=== PATIENT | female | born 1965 ===

== ENCOUNTER 2017-04-17 18:24 | Emergency (ER) | payer MEDICARE ==
[2017-04-17 18:24] VITALS: BMI 26.2
[2017-04-17 18:57] VITALS: RESP 16; TEMP 97.9
[2017-04-17] MEDS ORDERED: Sodium Chloride 0.9% 1,000 ML IV STA (19:29)
--- NOTE | 2017-04-17 19:39 | ED PDOC ---
HPI: Abdomen Time Seen by Provider: 04/17/17 19:21 Chief Complaint (Nursing): Abdominal Pain Chief Complaint (Provider): Left flank pain History Per: Patient History/Exam Limitations: no limitations Onset/Duration Of Symptoms: Days (1) Outside of [place] travel?: No Current Symptoms Are (Timing): Still Present Location Of Pain/Discomfort: Other (left flank) Quality Of Discomfort: "Pain" Associated Symptoms: Urinary Symptoms Additional Complaint(s): The patient is a 51yo female, past medical history of depression, presents to the ED for evaluation of left flank pain, dysuria and hematuria since last night. Patient reports she visited her chief investment officer Dr. Sanchez who did a urinalysis which showed dirty urine. Patient additionally reports yesterday morning, she had mid-sternal chest pain, non-radiating. She denies any associated shortness of breath. Patient offers no additional medical complaints. Past Medical History Reviewed: Historical Data, Nursing Documentation, Vital Signs Vital Signs: Last Vital Signs Temp 97.9 F 04/17/17 18:53 Pulse 82 04/17/17 21:35 Resp 16 04/17/17 18:53 BP 123/89 04/17/17 18:53 Pulse Ox 99 04/17/17 21:35 - Medical History PMH: Asthma, Depression, Hypercholesterolemia, Chronic Kidney Disease (RENAL SURGERY) - Surgical History Surgical History: No Surg Hx - Family History Family History: States: Unknown Family Hx - Home Medications Home Medications: Ambulatory Orders Medication Instructions Recorded Albuterol HFA [Ventolin HFA 90 1 tab PO DAILY 04/10/17 mcg/actuation (8 g)] Clonazepam 1 tab PO DAILY 04/10/17 Methocarbamol 1 tab PO Q4H 04/10/17 Omeprazole 1 tab PO DAILY 04/10/17 Trazodone HCl 1 tab PO HS 04/10/17 - Allergies Allergies/Adverse Reactions: Allergies Allergy/AdvReac Type Severity Reaction Status Date / Time No Known Allergies Allergy Verified 04/17/17 18:53 Review of Systems ROS Statement: Except As Marked, All Systems Reviewed And Found Negative Cardiovascular: Positive for: Chest Pain (mid-sternal) Respiratory: Negative for: Shortness of Breath Gastrointestinal: Positive for: Abdominal Pain (left flank pain) Genitourinary Female: Positive for: Dysuria, Hematuria Physical Exam - Reviewed Nursing Documentation Reviewed: Yes Vital Signs Reviewed: Yes - Physical Exam Appears: Positive for: Well, Non-toxic, No Acute Distress Head Exam: Positive for: ATRAUMATIC, NORMAL INSPECTION, NORMOCEPHALIC Skin: Positive for: Normal Color, Warm, DRY Eye Exam: Positive for: Normal appearance Neck: Positive for: Normal, Supple Cardiovascular/Chest: Positive for: Regular Rate, Rhythm Respiratory: Positive for: Normal Breath Sounds. Negative for: Respiratory Distress Gastrointestinal/Abdominal: Positive for: Soft, Tenderness (left upper quadrant) Back: Positive for: L CVA Tenderness Neurologic/Psych: Positive for: Alert, Oriented - Laboratory Results Result Diagrams: 04/17/17 19:41 04/17/17 19:41 - ECG ECG: Positive for: Interpreted By Me, Viewed By Me ECG Rhythm: Positive for: Sinus Rhythm. Negative for: ST/T Changes Rate: 82 O2 Sat by Pulse Oximetry: 99 (RA) Pulse Ox Interpretation: Normal Medical Decision Making Medical Decision Making: Time: 1934 Impression: Pyelonephritis vs. infected kidney stone Plan: -- Labs -- IV Fluids -- Toradol 30 mg IM -- CT AP w/ IV Contrast Reassess Time: 2134 CT AP IMPRESSION: Nonspecific findings on the left as described in this patient with prior left surgery. Findings may represent recently passed calculus. Superimposed left-sided pyelonephritis cannot be completely excluded Cystitis suspected 2300 Pt. feeling much better, states she has an appointment with her doctor in 2 days. Will encourage f/u, return precautions given. Scribe Attestation: Documented by Blanche Fritz acting as a scribe for Geovani Tinajero MD. Provider Attestation: All medical record entries made by the Scribe were at my direction and personally dictated by me. I have reviewed the chart and agree that the record accurately reflects my personal performance of the history, physical exam, medical decision making, and the department course for this patient. I have also personally directed, reviewed, and agree with the discharge instructions and disposition. Disposition - Clinical Impression Clinical Impression: Pyelonephritis - Disposition Disposition: Routine/Home Disposition Time: 23:19 Condition: STABLE
[2017-04-17 19:57] LABS: BASO % 0.4 % (0.0-2.0); EOS # 0.2 K/uL (0.0-0.7); EOS % 1.5 % (0.0-4.0); HEMOGLOBIN 12.1 g/dL (12.0-16.0); LYMPH % 16.5 % (20.0-40.0); MEAN CORPUSCULAR HEMOGLOBIN 30.8 pg (27.0-31.0); MEAN CORPUSCULAR HGB CONC 33.8 g/dL (33.0-37.0); MEAN PLATELET VOLUME 9.4 fl (7.2-11.7); MONO # 0.8 K/uL (0.0-0.8); MONO % 7.1 % (0.0-10.0); NEUT # 8.9 K/uL (1.8-7.0); NEUT % 74.5 % (50.0-75.0); NRBC % 0.1 % (0.0-0.0); RBC 3.92 Mil/uL (3.80-5.20)
[2017-04-17 20:00] LABS: SQUAMOUS EPITHIAL 2 /hpf (0-5); URINE BILIRUBIN NEGATIVE (NEGATIVE); URINE BLOOD LARGE (NEGATIVE); URINE CLARITY TURBID (Clear); URINE COLOR YELLOW (YELLOW); URINE GLUCOSE (UA) NEG (Normal); URINE LEUKOCYTE ESTERASE LARGE Leu/uL (Negative); URINE NITRATE POSITIVE (NEGATIVE); URINE PROTEIN >=500 mg/dL (NEGATIVE); URINE UROBILINOGEN 0.2-1.0 mg/dL (0.2-1.0); WBC CLUMPS OCC /hpf
[2017-04-17 20:01] LABS: URINE BACTERIA MANY (<OCC)
[2017-04-17 20:05] LABS: ALB/GLOB RATIO 1.5 (1.0-2.1); ALBUMIN 3.7 g/dL (3.5-5.0); ALT/SGPT 33 U/L (9-52); AST/SGOT 21 U/L (14-36); BLOOD UREA NITROGEN 12 mg/dl (7-17); CALCIUM 8.9 mg/dL (8.4-10.2); GFR AFRICAN-AMERICAN > 60; GFR NON-AFRICAN AMERICAN > 60
[2017-04-17] MEDS ORDERED: Iohexol 300 100 ML IJ ONE (20:12)
[2017-04-17] MEDS ORDERED: Sodium Chloride 0.9% 50 ML IV ONE (20:13)
[2017-04-17] MEDS ORDERED: Iohexol 300 50 ML ONE (21:08)
[2017-04-17] MEDS ORDERED: levoFLOXacin 750 mg in D5W 150 ML BAG IVPB STA (22:01)
[2017-04-17] MEDS ORDERED: Morphine 4 MG/ML VIAL IVP STA (22:01)
[2017-04-17] MEDS ORDERED: levoFLOXacin 750 mg in D5W 750 MG/150 ML BAG IVPB ONE (22:13)
[2017-04-17 23:51] VITALS: BP 125/80; PULSE 75; O2SAT 100
--- NOTE | 2017-04-18 10:07 | CARD ---
APPROVED REPORT EKG Measurement Heart [id number] <Conclusion> Normal sinus rhythm Normal ECG
--- NOTE | 2017-04-18 10:17 | CT ---
PROCEDURE: CT Abdomen and Pelvis with contrast HISTORY: L flank pain, chills, UTI, r/o pyelo v stone COMPARISON: And pelvis CT examination 07/07/2016. TECHNIQUE: Contrast dose: Omnipaque 300, 95 cc Radiation dose: Total exam DLP = 627 mGy-cm. This CT exam was performed using one or more of the following dose reduction techniques: Automated exposure control, adjustment of the mA and/or kV according to patient size, and/or use of iterative reconstruction technique. FINDINGS: LOWER THORAX: Limited bilateral basilar dependent atelectasis. LIVER: Mild diffuse fatty infiltration liver is identified. No intrahepatic biliary dilatation is encountered. GALLBLADDER AND BILE DUCTS: Gallbladder is contracted. CBD caliber appears normal. PANCREAS: Unremarkable. No gross lesion or ductal dilatation. SPLEEN: Unremarkable. ADRENALS: Unremarkable. No mass. KIDNEYS AND URETERS: Right kidney appears unremarkable once again. However, in the interval, the left renal pelvis is now markedly dilated increase of [id number] size previously shown. There is there is also mild dilatation of the calyceal system diffusely indicating hydronephrosis. Mural thickening along the entire course of the ureter is suspected. No radiodense urolithiasis is identified. Consider possible expulsion of obstruction CT distal left ureteral calculus although ureteral caliber is normal throughout. It is possible there are habits there is been interval worsening of a proximal left ureteral stricture. Urological consultation is advised. Cervical seen of the left sharmaine abdomen the front uncertain origin with no clips appearing to approximate the course of the left ureter. VASCULATURE: Unremarkable. No aortic aneurysm. BOWEL: Unremarkable. No obstruction. No gross mural thickening. APPENDIX: Normal appendix. PERITONEUM: Unremarkable. No free fluid. No free air. LYMPH NODES: Unremarkable. No enlarged lymph nodes. BLADDER: There is some thickening urinary bladder wall which also appears somewhat hyperemic. Consider possible cystitis. REPRODUCTIVE: Unremarkable. BONES: No acute fracture. OTHER FINDINGS: None. IMPRESSION: 1. Mild left hydronephrosis now identified with prominent left renal pelvis now a multiple of its previous size. The left ureter is not dilated but appears thick-walled as well as the urinary bladder. Consider possible expulsion of stroke obstructing distal left renal calculus although none is currently appreciated in the urinary bladder. Consider possible worsening of a proximal left ureteral stricture or even the left UPJ stricture given prior prominence the left renal pelvis. Urological consultation is advised. 2. Consider possible cystitis of indeterminate etiology.
--- NOTE | 2017-04-18 15:15 | RAD ---
PROCEDURE: CHEST RADIOGRAPH, 1 VIEW HISTORY: chest pain COMPARISON: 12/22/2016 radiograph. FINDINGS: LUNGS: Clear. PLEURA: No pneumothorax or pleural fluid seen. CARDIOVASCULAR: Normal. OSSEOUS STRUCTURES: No significant abnormalities. VISUALIZED UPPER ABDOMEN: Normal. OTHER FINDINGS: None. IMPRESSION: No acute cardiopulmonary disease or significant interval change.
== END 2017-04-17 23:52 | disposition home or self-care (01) ==
LOC: H.ER 18:24
DX: N10 Acute pyelonephritis (principal); E78.00 Pure hypercholesterolemia, unspecified; F32.9 Major depressive disorder, single episode, unspecified; J45.909 Unspecified asthma, uncomplicated; N18.9 Chronic kidney disease, unspecified
CPT/HCPCS: 71010; 74177; 80053; 81003; 81025; 84484; 85025; 87040; 87086; 87181; 93005; 96365; 96375; 99283; J1885; J7040; Q9967

== ENCOUNTER 2017-08-03 10:02 | Emergency (ER) | payer MEDICARE, OTHER ==
[2017-08-03 10:02] VITALS: BMI 26.2
[2017-08-03 10:33] VITALS: BP 121/78; PULSE 88; RESP 18; TEMP 97; O2SAT 99
--- NOTE | 2017-08-03 10:38 | ED PDOC ---
HPI: CCC, URI, Sore Throat Time Seen by Provider: 08/03/17 10:31 Chief Complaint (Nursing): Cough, Cold, Congestion History Per: Patient Onset/Duration Of Symptoms: Days (10) Current Symptoms Are (Timing): Still Present Associated Symptoms: Cough, Sputum. denies: Fever Severity: Mild Additional Complaint(s): Cough productive brown sputum x 10 days assoc with wheezing. Temp improvement with inhaler. Denies fever. Past Medical History Vital Signs: Last Vital Signs Temp 97 F L 08/03/17 10:31 Pulse 88 08/03/17 10:31 Resp 18 08/03/17 10:31 BP 121/78 08/03/17 10:31 Pulse Ox 99 08/03/17 10:40 - Medical History PMH: Asthma, Depression, Hypercholesterolemia, Chronic Kidney Disease (RENAL SURGERY) - Surgical History Surgical History: - Family History Family History: States: Unknown Family Hx - Home Medications Home Medications: Ambulatory Orders Medication Instructions Recorded Albuterol HFA [Ventolin HFA 90 1 tab PO DAILY 04/10/17 mcg/actuation (8 g)] Clonazepam 1 tab PO DAILY 04/10/17 Methocarbamol 1 tab PO Q4H 04/10/17 Omeprazole 1 tab PO DAILY 04/10/17 Trazodone HCl 1 tab PO HS 04/10/17 Ibuprofen [Motrin Tab] 600 mg PO Q6 #30 tab 04/17/17 levoFLOXacin [Levaquin] 750 mg PO DAILY 10 Days tab 04/17/17 Albuterol 0.083% [Albuterol 3 ml IH Q8 #1 neb 08/03/17 Sulfate 3 Ml] Albuterol HFA [Ventolin HFA 90 2 puff IH Q4H #1 puff 08/03/17 mcg/actuation (8 g)] Azithromycin [Zithromax] 250 mg PO DAILY #6 tab 08/03/17 Non-Formulary 1 ea .ROUTE Q6 #1 ea 08/03/17 predniSONE [predniSONE Tab] 10 mg PO TID #15 tab 08/03/17 - Allergies Allergies/Adverse Reactions: Allergies Allergy/AdvReac Type Severity Reaction Status Date / Time No Known Allergies Allergy Verified 08/03/17 10:31 Review of Systems ROS Statement: Except As Marked, All Systems Reviewed And Found Negative Constitutional: Negative for: Fever Cardiovascular: Negative for: Chest Pain Respiratory: Positive for: Cough, Shortness of Breath, Wheezing Physical Exam - Reviewed Nursing Documentation Reviewed: Yes Vital Signs Reviewed: Yes - Physical Exam Appears: Positive for: Non-toxic, No Acute Distress Head Exam: Positive for: ATRAUMATIC, NORMAL INSPECTION, NORMOCEPHALIC Skin: Positive for: Normal Color, Warm, DRY Eye Exam: Positive for: EOMI, Normal appearance, PERRL ENT: Positive for: Normal ENT Inspection Neck: Positive for: Normal, Painless ROM Cardiovascular/Chest: Positive for: Regular Rate, Rhythm Respiratory: Positive for: CNT, Normal Breath Sounds Gastrointestinal/Abdominal: Positive for: Normal Exam, Bowel Sounds, Soft Back: Positive for: Normal Inspection Extremity: Positive for: Normal ROM Neurologic/Psych: Positive for: Alert, Oriented - ECG O2 Sat by Pulse Oximetry: 99 Disposition - Clinical Impression Clinical Impression: Bronchitis, Asthma - Patient ED Disposition Is Patient to be Admitted: No Counseled Patient/Family Regarding: Studies Performed, Diagnosis, Need For Followup, Rx Given - Disposition Referrals: [facility] [Outside] Disposition: Routine/Home Disposition Time: 11:03 Condition: FAIR Prescriptions: Albuterol 0.083% [Albuterol Sulfate 3 Ml] 3 ml IH Q8 #1 neb Albuterol HFA [Ventolin HFA 90 mcg/actuation (8 g)] 2 puff IH Q4H #1 puff Azithromycin [Zithromax] 250 mg PO DAILY #6 tab Non-Formulary 1 ea .ROUTE Q6 #1 ea predniSONE [predniSONE Tab] 10 mg PO TID #15 tab Instructions: Asthma (ED), Acute Bronchitis (ED) Forms: [facility] [facility] ([facility]incent[facility])
--- NOTE | 2017-08-03 11:09 | RAD ---
HISTORY: cough COMPARISON: Right rib radiographs performed 05/03/17, chest x-ray performed 04/17/17 TECHNIQUE: Chest PA and lateral FINDINGS: LUNGS: No focal consolidation. Please note that chest x-ray has limited sensitivity for the detection of pulmonary masses. PLEURA: No significant pleural effusion identified. No definite pneumothorax . CARDIOVASCULAR: Heart size appears within normal limits. OSSEOUS STRUCTURES: No acute osseous abnormality identified. VISUALIZED UPPER ABDOMEN: Unremarkable. OTHER FINDINGS: None. IMPRESSION: No focal consolidation, significant pleural effusion, or definite pneumothorax identified.
== END 2017-08-03 11:24 | disposition home or self-care (01) ==
LOC: H.ER 10:02
DX: J45.909 Unspecified asthma, uncomplicated (principal); E78.00 Pure hypercholesterolemia, unspecified; F32.9 Major depressive disorder, single episode, unspecified; N18.9 Chronic kidney disease, unspecified; J40 Bronchitis, not specified as acute or chronic

== ENCOUNTER 2017-12-12 23:46 | Inpatient (IN) | payer MEDICARE, SELFPAY ==
[2017-12-12 23:46] VITALS: BMI 26.2
[2017-12-13] MEDS ORDERED: Sodium Chloride 0.9% 1,000 ML IV STA (01:00)
[2017-12-13] MEDS ORDERED: cefTRIAXone 2 GM in Dextrose 5% In Water 100 ML IVPB STA (01:08)
[2017-12-13] MEDS ORDERED: cefTRIAXone (Rocephin) 1 gm Inj ONE (01:41)
--- NOTE | 2017-12-13 01:47 | ED PDOC ---
HPI: Abdomen Time Seen by Provider: 12/13/17 00:51 Chief Complaint (Nursing): Back Pain Chief Complaint (Provider): Flank Pain History Per: Patient History/Exam Limitations: no limitations Onset/Duration Of Symptoms: Hrs (x24 hours), Worse Since (x2 hours) Severity: Severe Location Of Pain/Discomfort: Other (Left flank pain) Associated Symptoms: Urinary Symptoms (dysuria) Additional Complaint(s): 52 year old female presents to ED with complaints of left flank pain x24 hours and has a past medical history of depression and recurrent kidney/urinary infections. Patient notes that pain has become severe in the last 2 years. (+) dysuria. (-) hematuria. PCP: Miguel Angel Bautista Past Medical History Reviewed: Historical Data, Nursing Documentation, Vital Signs Vital Signs: Last Vital Signs Temp 98.7 F 12/13/17 07:43 Pulse 93 H 12/13/17 09:35 Resp 18 12/13/17 09:35 BP 110/73 12/13/17 07:43 Pulse Ox 95 12/13/17 09:35 - Medical History PMH: Asthma, Depression, Hypercholesterolemia, Chronic Kidney Disease (RENAL SURGERY) - Surgical History Surgical History: Denies: No Surg Hx Other surgeries: left kidney surgery - Family History Family History: States: Unknown Family Hx - Social History Current smoker - smoking cessation education provided: No Ex-Smoker (has not smoked in the last 12 months): No Alcohol: None Drugs: Denies - Home Medications Home Medications: Ambulatory Orders Medication Instructions Recorded Albuterol 0.083% [Albuterol 0.083% 2.5 mg INH TID 12/13/17 Inhal Cyndie (2.5 mg/3 ml) UD] Albuterol HFA [Ventolin HFA 90 2 puff INH TID 12/13/17 mcg/actuation (8 g)] Ciprofloxacin [Cipro] 500 mg PO BID 14 Days #28 tab 12/13/17 Citalopram [celEXA] 20 mg PO DAILY 12/13/17 Fluticasone Propionate [Flovent 0.22 mg IH BID 12/13/17 Hfa] Gabapentin [Neurontin] 300 mg PO TID 12/13/17 Lubiprostone [Amitiza] 8 mcg PO DAILY 12/13/17 Meclizine [Antivert] 12.5 mg PO DAILY 12/13/17 Olanzapine [Zyprexa] 5 mg PO DAILY 12/13/17 Olanzapine [Zyprexa] 5 mg PO DAILY 12/13/17 Omeprazole 40 mg PO DAILY 12/13/17 Pantoprazole [Protonix EC Tab] 40 mg PO DAILY 12/13/17 Risperidone [Risperdal] 1 mg PO BID 12/13/17 - Allergies Allergies/Adverse Reactions: Allergies Allergy/AdvReac Type Severity Reaction Status Date / Time No Known Allergies Allergy Verified 08/03/17 10:31 Review of Systems ROS Statement: Except As Marked, All Systems Reviewed And Found Negative Genitourinary Female: Positive for: Dysuria. Negative for: Hematuria Musculoskeletal: Positive for: Other (Left flank pain) Physical Exam - Reviewed Nursing Documentation Reviewed: Yes Vital Signs Reviewed: Yes - Physical Exam Appears: Positive for: Non-toxic, Uncomfortable Skin: Positive for: Normal Color, Warm, Dry Cardiovascular/Chest: Positive for: Regular Rate, Rhythm, Tachycardia Respiratory: Positive for: Normal Breath Sounds. Negative for: Respiratory Distress Gastrointestinal/Abdominal: Positive for: Normal Exam, Soft. Negative for: Tenderness Back: Positive for: L CVA Tenderness (severe). Negative for: Normal Inspection , R CVA Tenderness Neurologic/Psych: Positive for: Alert, Oriented. Negative for: Motor/Sensory Deficits - Laboratory Results Result Diagrams: 12/13/17 01:45 12/13/17 01:45 - ECG O2 Sat by Pulse Oximetry: 100 (RA) Pulse Ox Interpretation: Normal Medical Decision Making Medical Decision Makin Initial impression: left renal colic in setting of frequent kidney infections Initial plan: * Labs * Lact acid * UPreg * UDip * NS IV * Dextrose IV * Toradol 15mg IVP * BCx * UCx * Re-eval 0408 Patient will be admitted for further treatment of pyelonephritis under the admitting resident Dr. Keene covering for Dr. Bautista (INPATIENT MED/SURG). 0430 CT FINDINGS: LIMITATIONS: Mild streak/motion artifact. LOWER THORAX: No infiltrate seen in the lung bases. ABDOMEN: LIVER: Tiny (less than 5 mm) fluid density liver lesion incidentally noted, which does not have suspicious features by CT. Consistent with the [employer]'s Incidental Findings Committee Report (J Am Dashawn Radiol 2010): Unless the patient's specific circumstances suggest otherwise, any liver lesion 0.5 cm or less not otherwise characterized in this report as possessing suspicious or indeterminate imaging features is highly likely to be benign and does not require followup imaging or biopsy. GALLBLADDER AND BILE DUCTS: Mild biliary ductal dilatation, with the common bile duct measuring 9 mm in diameter, similar to the prior CT. No evidence of radiopaque bile duct stones. No CT evidence of acute cholecystitis. PANCREAS: No CT evidence of acute pancreatitis. SPLEEN: No acute abnormality of the spleen identified. ADRENALS: No acute abnormality of the adrenal glands identified. KIDNEYS AND URETERS: Severe left hydronephrosis, mild left hydroureter, and mild left perinephric and periureteric stranding. Findings appear stable compared to the prior CT. No obstructing stones visualized. Multiple surgical clips in the left retroperitoneum, abutting the left UPJ and the left mid ureter. STOMACH AND BOWEL: No acute abnormality of the stomach, small bowel or colon identified. No evidence of bowel obstruction. APPENDIX: Appendix is seen, and is within normal limits in appearance. PELVIS: BLADDER: No acute abnormality of the bladder identified. REPRODUCTIVE:No acute abnormality of the reproductive organs is seen. No acute abnormality of the uterus identified. No evidence of large adnexal masses. ABDOMEN and PELVIS: INTRAPERITONEAL SPACE: No evidence of free intraperitoneal air or fluid. BONES/JOINTS: No acute fractures or other acute bony abnormality noted. SOFT TISSUES: No acute abnormality of the visualized soft tissues is seen. VASCULATURE: No evidence of abdominal aortic aneurysm. No evidence of periaortic hemorrhage. LYMPH NODES: No evidence of diffuse lymphadenopathy. IMPRESSION: - Stable findings compared to a 04/17/2017 CT. - Severe left hydronephrosis, mild left hydroureter, and left perinephric/ periureteric stranding, with no obstructing stone seen. Findings appear unchanged, and could represent chronic obstructive uropathy. A superimposed left-sided urinary tract infection is not excluded, however. - Mild biliary ductal dilatation, cause not identified. Recommend correlation with LFTs for laboratory evidence of biliary obstruction, and followup right upper quadrant ultrasound as indicated. - See above for remaining findings. Scribe Attestation: Documented by Rosario Ruiz acting as a scribe Nahid Willoughby MD. MD Oliver Attestation: All medical record entries made by the Scribe were at my direction and personally dictated by me. I have reviewed the chart and agree that the record accurately reflects my personal performance of the history, physical exam, medical decision making, and the department course for this patient. I have also personally directed, reviewed, and agree with the discharge instructions and disposition. Disposition - Clinical Impression Clinical Impression: Acute pyelonephritis - Patient ED Disposition Is Patient to be Admitted: Yes - Disposition Disposition Time: 04:08 Condition: FAIR - Pt Status Changed To: Hospital Disposition Of: Inpatient (INPATIENT MED/SURG) - Admit Certification Admit to Inpatient:: After my assessment, the patient will require hospitalization for at least two midnights. This is because of the severity of symptoms shown, intensity of services needed, and/or the medical risk in this patient being treated as an outpatient.
[2017-12-13 02:15] LABS: BASO # 0.1 K/uL (0.0-0.2); BASO % 0.5 % (0.0-2.0); EOS # 0.2 K/uL (0.0-0.7); EOS % 1.2 % (0.0-4.0); LYMPH # 3.5 K/uL (1.0-4.3); LYMPH % 25.4 % (20.0-40.0); MEAN CELL VOLUME 92.2 fl (81.0-99.0); MEAN CORPUSCULAR HEMOGLOBIN 30.8 pg (27.0-31.0); MEAN CORPUSCULAR HGB CONC 33.4 g/dL (33.0-37.0); MEAN PLATELET VOLUME 9.6 fl (7.2-11.7); MONO # 0.8 K/uL (0.0-0.8); MONO % 5.6 % (0.0-10.0); NEUT # 9.2 K/uL (1.8-7.0); NEUT % 67.3 % (50.0-75.0); RBC 4.56 Mil/uL (3.80-5.20); WHITE BLOOD COUNT 13.7 K/uL (4.8-10.8)
[2017-12-13 02:22] LABS: BLOOD UREA NITROGEN 18 mg/dl (7-17); CALCIUM 9.5 mg/dL (8.4-10.2); GFR AFRICAN-AMERICAN > 60; GFR NON-AFRICAN AMERICAN > 60
[2017-12-13 04:04] LABS: SQUAMOUS EPITHIAL 3 /hpf (0-5); URINE BACTERIA FEW (<OCC); URINE BILIRUBIN NEGATIVE (NEGATIVE); URINE BLOOD MODERATE (NEGATIVE); URINE CLARITY TURBID (Clear); URINE COLOR YELLOW (YELLOW); URINE GLUCOSE (UA) NEG (Normal); URINE LEUKOCYTE ESTERASE LARGE Leu/uL (Negative); URINE PROTEIN 100 mg/dL (NEGATIVE); URINE UROBILINOGEN 0.2-1.0 mg/dL (0.2-1.0)
--- NOTE | 2017-12-13 04:33 | CT ---
EXAM: CT Abdomen and Pelvis Without Intravenous Contrast EXAM DATE/TIME: 12/13/2017 3:03 AM CLINICAL HISTORY: 52 years old, female; Pain; Abdominal pain; Flank; Left; Prior surgery; Surgery date: 6+ months; Surgery type: Left kidney surgery. ; Additional info: Renal colic TECHNIQUE: Axial computed tomography images of the abdomen and pelvis without intravenous contrast. All CT scans at this facility use one or more dose reduction techniques, viz.: automated exposure control; ma/kV adjustment per patient size (including targeted exams where dose is matched to indication; i.e. head); or iterative reconstruction technique. Coronal and sagittal reformatted images were created and reviewed. COMPARISON: Prior CT abdomen and pelvis of 2017-04-17 21:09 FINDINGS: LIMITATIONS: Mild streak/motion artifact. LOWER THORAX: No infiltrate seen in the lung bases. ABDOMEN: LIVER: Tiny (less than 5 mm) fluid density liver lesion incidentally noted, which does not have suspicious features by CT. Consistent with the [employer]?s Incidental Findings Committee Report (J Am Dashawn Radiol 2010): Unless the patient?s specific circumstances suggest otherwise, any liver lesion 0.5 cm or less not otherwise characterized in this report as possessing suspicious or indeterminate imaging features is highly likely to be benign and does not require follow-up imaging or biopsy. GALLBLADDER AND BILE DUCTS: Mild biliary ductal dilatation, with the common bile duct measuring 9 mm in diameter, similar to the prior CT. No evidence of radiopaque bile duct stones. No CT evidence of acute cholecystitis. PANCREAS: No CT evidence of acute pancreatitis. SPLEEN: No acute abnormality of the spleen identified. ADRENALS: No acute abnormality of the adrenal glands identified. KIDNEYS AND URETERS: Severe left hydronephrosis, mild left hydroureter, and mild left perinephric and periureteric stranding. Findings appear stable compared to the prior CT. No obstructing stones visualized. Multiple surgical clips in the left retroperitoneum, abutting the left UPJ and the left mid ureter. STOMACH AND BOWEL: No acute abnormality of the stomach, small bowel or colon identified. No evidence of bowel obstruction. APPENDIX: Appendix is seen, and is within normal limits in appearance. PELVIS: BLADDER: No acute abnormality of the bladder identified. REPRODUCTIVE:No acute abnormality of the reproductive organs is seen. No acute abnormality of the uterus identified. No evidence of large adnexal masses. ABDOMEN and PELVIS: INTRAPERITONEAL SPACE: No evidence of free intraperitoneal air or fluid. BONES/JOINTS: No acute fractures or other acute bony abnormality noted. SOFT TISSUES: No acute abnormality of the visualized soft tissues is seen. VASCULATURE: No evidence of abdominal aortic aneurysm. No evidence of periaortic hemorrhage. LYMPH NODES: No evidence of diffuse lymphadenopathy. IMPRESSION: - Stable findings compared to a 04/17/2017 CT. - Severe left hydronephrosis, mild left hydroureter, and left perinephric/periureteric stranding, with no obstructing stone seen. Findings appear unchanged, and could represent chronic obstructive uropathy. A superimposed left-sided urinary tract infection is not excluded, however. - Mild biliary ductal dilatation, cause not identified. Recommend correlation with LFTs for laboratory evidence of biliary obstruction, and followup right upper quadrant ultrasound as indicated. - See above for remaining findings.
--- NOTE | 2017-12-13 05:47 | CP.PCM.HP ---
History of Present Illness - History of Present Illness History of Present Illness: 52 year old female presented to ED with complaint of left sided flank pain for 2 days, acutely worsened prior to admission. Pain improved since arriving to ED , no fevers, chills, nausea or vomiting, no abdominal pain or diarrhea. She has dysuria, denies hematuria, malodor. She endorses a history of recurrent UTIs, for which she typically takes PO antibiotics for 7 days with resolution of symptoms. She has had 7 or 8 UTIs in the last 4 years. 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 She had surgery to 'connect her left kidney to the right kidney' due to decreased renal function, now both work well. She has a urologist, Dr. Cox that she last saw about 6 months ago. Also notes retrosternal burning. She takes omeprazole ocassionally. She had EGD about 6-7 months ago performed by Dr. Wang. She was treated with 2 week course of antibiotics, but has not followed up after treatment. PMD: Dr. Miguel Angel Bautista Urologist: Dr. Pantera Cox Sawmill Worker: Dr. Wang PMH: Recurrent UTI, Depression, Asthma, Vertigo Medications: as per med rec Allergies: NKDA Social: +Tobacco use: 10 cigs/day, no etoh or illicit drug use Surgical hx: left kidney surgery, x 1, left ankle surgery Family Hx: Mother: +gastric cancer, +thyroid cancer, Father: -had alzheimers. Sister: , had HIV Present on Admission - Present on Admission Any Indicators Present on Admission: No Review of Systems - Constitutional Constitutional: absent: Chills, Fever, Headache, Night Sweats - EENT Eyes: absent: Change in Vision Nose/Mouth/Throat: absent: Nasal Congestion, Dysphagia, Sore Throat - Cardiovascular Cardiovascular: absent: Chest Pain, Dyspnea, Dyspnea on Exertion, Edema, Pedal Edema, Syncope - Respiratory Respiratory: absent: Cough, Dyspnea, Dyspnea on Exertion - Gastrointestinal Gastrointestinal: Heartburn. absent: Abdominal Pain, Nausea, Vomiting - Genitourinary Genitourinary: Dysuria, Flank Pain (Left), Freq UTI, Hx /Renal Surgery. absent: Hematuria, Pyuria Past Patient History - Infectious Disease Hx of Infectious Diseases: None - Past Medical History & Family History Past Medical History?: Yes - Past Social History Smoking Status: Light Smoker < 10 Cigarettes Daily Chewing Tobacco Use: No Alcohol: None Drugs: Denies - CARDIAC Hx Hypercholesterolemia: Yes - PULMONARY Hx Asthma: Yes - NEUROLOGICAL Hx Neurological Disorder: No - HEENT Hx HEENT Problems: No - RENAL Hx Chronic Kidney Disease: Yes (RENAL SURGERY) - ENDOCRINE/METABOLIC Hx Endocrine Disorders: No - HEMATOLOGICAL/ONCOLOGICAL Hx Blood Disorders: No - INTEGUMENTARY Hx Dermatological Problems: No - MUSCULOSKELETAL/RHEUMATOLOGICAL Hx Musculoskeletal Disorders: No - GASTROINTESTINAL Hx Gastrointestinal Disorders: No - GENITOURINARY/GYNECOLOGICAL Hx Genitourinary Disorders: No - PSYCHIATRIC Hx Depression: Yes - SURGICAL HISTORY Other/Comment: renal surgery - ANESTHESIA Hx Anesthesia: Yes Hx Anesthesia Reactions: No Hx Malignant Hyperthermia: No Meds Allergies/Adverse Reactions: Allergies Allergy/AdvReac Type Severity Reaction Status Date / Time No Known Allergies Allergy Verified 08/03/17 10:31 Physical Exam - Constitutional Appears: Well, Non-toxic, No Acute Distress - Head Exam Head Exam: ATRAUMATIC, NORMAL INSPECTION, NORMOCEPHALIC - Eye Exam Eye Exam: EOMI, Normal appearance, PERRL - ENT Exam ENT Exam: Mucous Membranes Moist - Respiratory Exam Respiratory Exam: Clear to Auscultation Bilateral, NORMAL BREATHING PATTERN - Cardiovascular Exam Cardiovascular Exam: REGULAR RHYTHM, +S1, +S2 - GI/Abdominal Exam GI & Abdominal Exam: Normal Bowel Sounds, Soft. absent: Distended, Guarding, Rebound, Tenderness - Rectal Exam Rectal Exam: Deferred - Back Exam Back exam: CVA tenderness (L), NORMAL INSPECTION. absent: paraspinal tenderness , rash noted - Neurological Exam Neurological exam: Alert, CN II-XII Intact, Oriented x3 - Psychiatric Exam Psychiatric exam: Normal Affect, Normal Mood - Skin Skin Exam: Dry, Intact, Normal Color, Warm Results - Vital Signs Recent Vital Signs: Last Vital Signs Temp 98.6 F 12/13/17 05:24 Pulse 96 H 12/13/17 05:24 Resp 16 12/13/17 05:24 BP 107/58 L 12/13/17 05:24 Pulse Ox 96 12/13/17 05:24 - Labs Result Diagrams: 12/13/17 01:45 12/13/17 01:45 Labs: Laboratory Results - last 24 hr 12/13/17 12/13/17 12/13/17 01:45 01:45 01:45 WBC 13.7 H D RBC 4.56 Hgb 14.0 Hct 42.0 MCV 92.2 MCH 30.8 MCHC 33.4 RDW 13.0 Plt Count 333 MPV 9.6 Neut % (Auto) 67.3 Lymph % (Auto) 25.4 [place] % (Auto) 5.6 Eos % (Auto) 1.2 Baso % (Auto) 0.5 Neut # (Auto) 9.2 H Lymph # (Auto) 3.5 [place] # (Auto) 0.8 Eos # (Auto) 0.2 Baso # (Auto) 0.1 Sodium 145 Potassium 3.6 Chloride 102 Carbon Dioxide 28 Anion Gap 19 BUN 18 H Creatinine 0.7 Est GFR ( Amer) > 60 Est GFR (Non-Af Amer) > 60 Random Glucose 87 Lactic Acid 1.1 Calcium 9.5 Urine Color Urine Clarity Urine pH Ur Specific [place] Urine Protein Urine Glucose (UA) Urine Ketones Urine Blood Urine Nitrate Urine Bilirubin Urine Urobilinogen Ur Leukocyte Esterase Urine RBC (Auto) Urine Microscopic WBC Ur Squamous Epith Cells Urine Bacteria 12/13/17 03:45 WBC RBC Hgb Hct MCV MCH MCHC RDW Plt Count MPV Neut % (Auto) Lymph % (Auto) [place] % (Auto) Eos % (Auto) Baso % (Auto) Neut # (Auto) Lymph # (Auto) [place] # (Auto) Eos # (Auto) Baso # (Auto) Sodium Potassium Chloride Carbon Dioxide Anion Gap BUN Creatinine Est GFR ( Amer) Est GFR (Non-Af Amer) Random Glucose Lactic Acid Calcium Urine Color Yellow Urine Clarity Turbid Urine pH 6.0 Ur Specific [place] 1.020 Urine Protein 100 Urine Glucose (UA) Neg Urine Ketones Negative Urine Blood Moderate Urine Nitrate Positive H Urine Bilirubin Negative Urine Urobilinogen 0.2-1.0 Ur Leukocyte Esterase Large Urine RBC (Auto) 127 H Urine Microscopic WBC 2281 H Ur Squamous Epith Cells 3 Urine Bacteria Few H - Imaging and Cardiology CT scan - abdomen Status: Image reviewed by me, Report reviewed by me Additional comment: FINDINGS: LIMITATIONS: Mild streak/motion artifact. LOWER THORAX: No infiltrate seen in the lung bases. ABDOMEN: LIVER: Tiny (less than 5 mm) fluid density liver lesion incidentally noted, which does not have suspicious features by CT. Consistent with the [employer]'s Incidental Findings Committee Report (J Am Dashawn Radiol 2010): Unless the patient's specific circumstances suggest otherwise, any liver lesion 0.5 cm or less not otherwise characterized in this report as possessing suspicious or indeterminate imaging features is highly likely to be benign and does not require followup imaging or biopsy. GALLBLADDER AND BILE DUCTS: Mild biliary ductal dilatation, with the common bile duct measuring 9 mm in diameter, similar to the prior CT. No evidence of radiopaque bile duct stones. No CT evidence of acute cholecystitis. PANCREAS: No CT evidence of acute pancreatitis. SPLEEN: No acute abnormality of the spleen identified. ADRENALS: No acute abnormality of the adrenal glands identified. KIDNEYS AND URETERS: Severe left hydronephrosis, mild left hydroureter, and mild left perinephric and periureteric stranding. Findings appear stable compared to the prior CT. No obstructing stones visualized. Multiple surgical clips in the left retroperitoneum, abutting the left UPJ and the left mid ureter. STOMACH AND BOWEL: No acute abnormality of the stomach, small bowel or colon identified. No evidence of bowel obstruction. APPENDIX: Appendix is seen, and is within normal limits in appearance. PELVIS: BLADDER: No acute abnormality of the bladder identified. REPRODUCTIVE:No acute abnormality of the reproductive organs is seen. No acute abnormality of the uterus identified. No evidence of large adnexal masses. ABDOMEN and PELVIS: INTRAPERITONEAL SPACE: No evidence of free intraperitoneal air or fluid. BONES/JOINTS: No acute fractures or other acute bony abnormality noted. SOFT TISSUES: No acute abnormality of the visualized soft tissues is seen. VASCULATURE: No evidence of abdominal aortic aneurysm. No evidence of periaortic hemorrhage. LYMPH NODES: No evidence of diffuse lymphadenopathy IMPRESSION: - Stable findings compared to a 04/17/2017 CT. - Severe left hydronephrosis, mild left hydroureter, and left perinephric/ periureteric stranding, with no obstructing stone seen. Findings appear unchanged, and could represent chronic obstructive uropathy. A superimposed left-sided urinary tract infection is not excluded, however. - Mild biliary ductal dilatation, cause not identified. Recommend correlation with LFTs for laboratory evidence of biliary obstruction, and followup right upper quadrant ultrasound as indicated. Assessment & Plan (1) Acute pyelonephritis Assessment and Plan: 52 year old female with significant PMH of recurrent UTIs and renal surgery, admitted for acute pyleonephritis. She is afebrile and hemodynamically stable with +L CVA tenderness, no nausea or vomiting. Mild leukocytosis of 13. Previous urine cultures reviewed, +e-coli, resistant to ampicillin. UA positive for : + nitrate, large leukocytes, WBC: > 2000 Continue rocephin toradol for pain control Status: Acute (2) DVT prophylaxis Assessment and Plan: scds for now, ambulation encouraged. Status: Acute
[2017-12-13 07:49] VITALS: BP 110/73; PULSE 93; TEMP 98.7
[2017-12-13 10:06] VITALS: RESP 18
[2017-12-13] MEDS ORDERED: LUBIPROSTONE 8 MCG PO SCH (14:00)
--- NOTE | 2017-12-13 15:11 | CP.PCM.DIS ---
Provider - Provider Date of Admission: 12/13/17 04:08 Attending physician: Miguel Angel Bautista MD Primary care physician: Miguel Angel Bautista MD Time Spent in preparation of Discharge (in minutes): 55 Diagnosis - Discharge Diagnosis (1) Acute pyelonephritis Status: Acute Hospital Course - Lab Results Lab Results: Most Recent Lab Values WBC 13.7 K/uL (4.8-10.8) H D 12/13/17 01:45 RBC 4.56 Mil/uL (3.80-5.20) 12/13/17 01:45 Hgb 14.0 g/dL (12.0-16.0) 12/13/17 01:45 Hct 42.0 % (34.0-47.0) 12/13/17 01:45 MCV 92.2 fl (81.0-99.0) 12/13/17 01:45 MCH 30.8 pg (27.0-31.0) 12/13/17 01:45 MCHC 33.4 g/dL (33.0-37.0) 12/13/17 01:45 RDW 13.0 % (11.5-14.5) 12/13/17 01:45 Plt Count 333 K/uL (130-400) 12/13/17 01:45 MPV 9.6 fl (7.2-11.7) 12/13/17 01:45 Neut % (Auto) 67.3 % (50.0-75.0) 12/13/17 01:45 Lymph % (Auto) 25.4 % (20.0-40.0) 12/13/17 01:45 [place] % (Auto) 5.6 % (0.0-10.0) 12/13/17 01:45 Eos % (Auto) 1.2 % (0.0-4.0) 12/13/17 01:45 Baso % (Auto) 0.5 % (0.0-2.0) 12/13/17 01:45 Neut # (Auto) 9.2 K/uL (1.8-7.0) H 12/13/17 01:45 Lymph # (Auto) 3.5 K/uL (1.0-4.3) 12/13/17 01:45 [place] # (Auto) 0.8 K/uL (0.0-0.8) 12/13/17 01:45 Eos # (Auto) 0.2 K/uL (0.0-0.7) 12/13/17 01:45 Baso # (Auto) 0.1 K/uL (0.0-0.2) 12/13/17 01:45 Sodium 145 mmol/l (132-148) 12/13/17 01:45 Potassium 3.6 MMOL/L (3.6-5.0) 12/13/17 01:45 Chloride 102 mmol/L (98-107) 12/13/17 01:45 Carbon Dioxide 28 mmol/L (22-30) 12/13/17 01:45 Anion Gap 19 (10-20) 12/13/17 01:45 BUN 18 mg/dl (7-17) H 12/13/17 01:45 Creatinine 0.7 mg/dl (0.7-1.2) 12/13/17 01:45 Est GFR ( Amer) > 60 12/13/17 01:45 Est GFR (Non-Af Amer) > 60 12/13/17 01:45 Random Glucose 87 mg/dL (65-105) 12/13/17 01:45 Lactic Acid 1.1 MMOL/L (0.7-2.1) 12/13/17 01:45 Calcium 9.5 mg/dL (8.4-10.2) 12/13/17 01:45 Urine Color Yellow (YELLOW) 12/13/17 03:45 Urine Clarity Turbid (Clear) 12/13/17 03:45 Urine pH 6.0 (5.0-8.0) 12/13/17 03:45 Ur Specific [place] 1.020 (1.003-1.030) 12/13/17 03:45 Urine Protein 100 mg/dL (NEGATIVE) 12/13/17 03:45 Urine Glucose (UA) Neg mg/dL (Normal) 12/13/17 03:45 Urine Ketones Negative mg/dL (NEGATIVE) 12/13/17 03:45 Urine Blood Moderate (NEGATIVE) 12/13/17 03:45 Urine Nitrate Positive (NEGATIVE) H 12/13/17 03:45 Urine Bilirubin Negative (NEGATIVE) 12/13/17 03:45 Urine Urobilinogen 0.2-1.0 mg/dL (0.2-1.0) 12/13/17 03:45 Ur Leukocyte Esterase Large [place]/uL (Negative) 12/13/17 03:45 Urine RBC (Auto) 127 /hpf (0-3) H 12/13/17 03:45 Urine Microscopic WBC 2281 /hpf (0-5) H 12/13/17 03:45 Ur Squamous Epith Cells 3 /hpf (0-5) 12/13/17 03:45 Urine Bacteria Few (<OCC) H 12/13/17 03:45 - Hospital Course Hospital Course: Pt is a 52 y/o female with a hx of frequent UTI's and Gastritis presented to [facility] with flank pain and was found to have pyelonephritis. Pt was hemodynamically stable and afebrile with mild leukocytosis. She had an abdominal CT that showed severe Left hydroneprhosis with perinephric stranding. I spoke with pt's urologist, Dr. Cox who cleared her for discharge with the recommendation for her to take oral antibiotics for 2 weeks and to have a follow up Abdominal CT once infection clears. I explained this to the patient and she verbalized understanding. Pt was stable on discharged. No changes to patient's regular medications. ER precautions give. Pt advised to take OTC Tylenol for pain and avoid Nsaids given her hx of gastritis. Discharge Exam - Head Exam Head Exam: ATRAUMATIC, NORMAL INSPECTION, NORMOCEPHALIC - Eye Exam Eye Exam: Normal appearance - ENT Exam ENT Exam: Mucous Membranes Moist - Respiratory Exam Respiratory Exam: NORMAL BREATHING PATTERN. absent: Accessory Muscle Use - Cardiovascular Exam Cardiovascular Exam: REGULAR RHYTHM, +S1, +S2. absent: Systolic Murmur - GI/Abdominal Exam GI & Abdominal Exam: Normal Bowel Sounds, Soft. absent: Distended, Guarding, Tenderness - Back Exam Back exam: absent: CVA tenderness (L), CVA tenderness (R) - Neurological Exam Neurological exam: Alert, Oriented x3 - Psychiatric Exam Psychiatric exam: Normal Affect - Skin Skin Exam: Normal Color Discharge Plan - Discharge Medications Prescriptions: Ciprofloxacin [Cipro] 500 mg PO BID 14 Days #28 tab - Follow Up Plan Condition: FAIR Disposition: HOME/ ROUTINE Instructions: Urinary Tract Infection, Adult (DC) Additional Instructions: Take Antibiotics for 14 days. Follow up with primary MD and urologist after [address] needed. Referrals: Pantera Cox MD [Medical Doctor] - Miguel Angel Bautista MD [Primary Care Provider] - Randal Wang MD [Medical Doctor] -
[2017-12-13] MEDS ORDERED: Albuterol HFA 90 mcg/actuation (8 g) INH SCH (17:00)
[2017-12-13] MEDS ORDERED: Albuterol 0.083% Inhal Sol (2.5 mg/3 mL) UD INH SCH (17:00)
[2017-12-13] MEDS ORDERED: FLUTICASONE PROPIONATE 0.22 MG IH SCH (17:00)
[2017-12-14] MEDS ORDERED: Pantoprazole 40 mg EC Tab PO SCH ×2 (09:00)
[2017-12-14 20:28] VITALS: O2SAT 100
== END 2017-12-13 14:50 | disposition home or self-care (01) | DRG 690 ==
LOC: H.ER 23:46 → H.ERHOLD 12-13 04:08 → H.MEDSURG1 12-13 06:39
PROVIDERS: ADMIT Family Medicine; ATTEND Family Medicine
DX: N13.6 Pyonephrosis (principal); E78.00 Pure hypercholesterolemia, unspecified; F32.9 Major depressive disorder, single episode, unspecified; J45.909 Unspecified asthma, uncomplicated; N18.9 Chronic kidney disease, unspecified; F17.210 Nicotine dependence, cigarettes, uncomplicated; K29.70 Gastritis, unspecified, without bleeding

== ENCOUNTER 2018-01-08 09:47 | Day surgery (SDC) | payer MEDICARE, SELFPAY ==
[2018-01-08 10:43] VITALS: BMI 26.4
[2018-01-08] MEDS ORDERED: Iohexol 240 200 ML ONE (11:02)
[2018-01-08 11:08] VITALS: TEMP 98
[2018-01-08] MEDS ORDERED: Lidocaine 2% Jelly (Uro-Jet) ONE (11:42)
[2018-01-08] MEDS ORDERED: Lidocaine 2% GEL TOP ONE (11:50)
[2018-01-08] MEDS ORDERED: Iohexol 240 200 ML BLADIN ONE (11:50)
[2018-01-08 12:37] VITALS: BP 130/90; PULSE 74; RESP 26; O2SAT 100
--- NOTE | 2018-01-08 15:09 | RAD ---
PROCEDURE: Intraoperative Fluoroscopy. HISTORY: CYSTO: EVALUATE FOR REFLUX FINDINGS: Fluoroscopic assistance was provided for cystography. Please refer to the operative report from FERNANDO Artis. Submitted images from the current procedure: 5.0.
--- NOTE | 2018-02-06 20:55 | OP ---
PROCEDURE DATE: 01/08/2018 PREOPERATIVE DIAGNOSIS: Recurrent urinary tract infection, rule out reflux uropathy. POSTOPERATIVE DIAGNOSIS: Recurrent urinary tract infection rule out reflux uropathy. PROCEDURE PERFORMED: Cystoscopy with pressure cystogram. DESCRIPTION OF PROCEDURE: The patient was placed on the operating room table in a dorsal lithotomy position. She was given 2% lidocaine for local anesthetic effect. At this time, a pressure cystogram was performed. The bladder was filled to capacity and then some and at that point, pressure was applied on the bladder, the patient was Valsalva and I was observing for vesicoureteral reflux. Once the initial x-ray was taken, then a voiding film was done and there was no evidence of any dye returning back to the ureters and up to the kidney, so I did not identify any reflux uropathy at this time. Following that procedure, I then inserted a flexible cystoscope to evaluate the bladder, there was no evidence of any bladder wall lesions. There was no evidence of any diverticuli or irregular formation within the bladder that could be considered for recurrent UTI. The cystoscopy and the pressure cystogram appears to be normal. The patient then was taken from the operating room in good condition. Pantera Cox MD
== END 2018-01-08 12:45 | disposition home or self-care (01) ==
LOC: H.OPSURG 09:47
PROVIDERS: ATTEND Urology
DX: N39.0 Urinary tract infection, site not specified (principal)
CPT/HCPCS: 51600; 52000; Q9966

== ENCOUNTER 2018-07-17 13:04 | Emergency (ER) | payer MEDICARE, SELFPAY ==
[2018-07-17 13:04] VITALS: BMI 26.9
[2018-07-17 13:26] VITALS: TEMP 97.9
--- NOTE | 2018-07-17 14:56 | RAD ---
HISTORY: Chest pain COMPARISON: 08/03/2017 TECHNIQUE: Chest PA and lateral FINDINGS: LINES AND TUBES: None. LUNG AND PLEURA: The lungs are well inflated and clear. No pleural effusion or pneumothorax. HEART AND MEDIASTINUM: The heart is not enlarged. No aortic atherosclerotic calcification present. The hilar and mediastinal contours are within normal limits. SKELETAL STRUCTURES: The bony structures are within normal limits for the patient's age. VISUALIZED UPPER ABDOMEN: Normal. OTHER FINDINGS: None. IMPRESSION: No active pulmonary disease.
[2018-07-17 15:05] LABS: BASO # 0.1 K/uL (0.0-0.2); BASO % 0.9 % (0.0-2.0); EOS # 0.1 K/uL (0.0-0.7); EOS % 1.8 % (0.0-4.0); HEMOGLOBIN 14.3 g/dL (12.0-16.0); LYMPH # 2.2 K/uL (1.0-4.3); LYMPH % 29.4 % (20.0-40.0); MEAN CORPUSCULAR HEMOGLOBIN 31.1 pg (27.0-31.0); MEAN CORPUSCULAR HGB CONC 34.5 g/dL (33.0-37.0); MEAN PLATELET VOLUME 9.2 fl (7.2-11.7); MONO # 0.7 K/uL (0.0-0.8); NEUT # 4.4 K/uL (1.8-7.0); NEUT % 58.9 % (50.0-75.0); RBC 4.6 Mil/uL (3.80-5.20); RED CELL DISTRIBUTION WIDTH 13.5 % (11.5-14.5); WHITE BLOOD COUNT 7.5 K/uL (4.8-10.8)
--- NOTE | 2018-07-17 15:14 | ED PDOC ---
HPI: Chest Pain Time Seen by Provider: 07/17/18 14:04 Chief Complaint (Nursing): Chest Pain Chief Complaint (Provider): Chest Pain History Per: Patient History/Exam Limitations: no limitations Onset/Duration Of Symptoms: Days (x1), Intermittent Episodes Associated Symptoms: denies: Nausea Additional Complaint(s): 53 years old female with history of asthma, depression, bipolar disorder and anxiety presents to ER for evaluation of intermittent chest pain radiating to u pper back since last night. Patient reports she woke up this morning concerned prompting ED visit but states symptoms have improved. She denies taking any medications for pain or any associated symptoms including fever, cough, sick contact, shortness of breath, abdominal pain, leg swelling or prolonged immobility, nausea, vomiting or diarrhea. Otherwise: (-) diaphoresis, (-) dyspnea, (-) pleuritic component, (-) ripping or tearing quality, (-) positional component, (-) exertional component, (-) dizziness, (-) syncope, (-) nausea, (-) vomiting, (-) calf swelling/pain, (-) neuro deficits. PMD: Miguel Angel Bautista Past Medical History Reviewed: Historical Data, Nursing Documentation, Vital Signs Vital Signs: Last Vital Signs Temp 97.9 F 07/17/18 13:23 Pulse 83 07/17/18 13:23 Resp 16 07/17/18 13:23 BP 115/78 07/17/18 13:23 Pulse Ox 96 07/17/18 13:23 - Medical History PMH: Anxiety, Asthma, Bipolar Disorder, Depression, Hypercholesterolemia, Chronic Kidney Disease (RENAL SURGERY) Denies: HIV - Surgical History Surgical History: Endoscopy Other surgeries: ORIF of left ankle. Kidney procedure - Family History Family History: States: Unknown Family Hx - Social History Current smoker - smoking cessation education provided: Yes (10 cigarettes/day) Alcohol: None Drugs: Denies - Home Medications Home Medications: Ambulatory Orders Medication Instructions Recorded RX: Albuterol 0.083% [Albuterol 2.5 mg INH DAILY 12/13/17 0.083% Inhal Cyndie (2.5 mg/3 ml) UD] RX: Albuterol HFA [Ventolin HFA 90 2 puff INH TID 12/13/17 mcg/actuation (8 g)] RX: Citalopram [celEXA] 20 mg PO DAILY 12/13/17 RX: Fluticasone Propionate 0.22 mg IH BID 12/13/17 [Flovent Hfa] RX: Gabapentin [Neurontin] 300 mg PO TID 12/13/17 RX: Lubiprostone [Amitiza] 8 mcg PO DAILY 12/13/17 RX: Meclizine [Antivert] 12.5 mg PO DAILY 12/13/17 RX: Omeprazole 40 mg PO DAILY 12/13/17 RX: Pantoprazole [Protonix EC Tab] 40 mg PO DAILY 12/13/17 RX: Naproxen 500 mg PO BID PRN #20 tab 07/17/18 - Allergies Allergies/Adverse Reactions: Allergies Allergy/AdvReac Type Severity Reaction Status Date / Time No Known Allergies Allergy Verified 07/17/18 13:13 Review of Systems ROS Statement: Except As Marked, All Systems Reviewed And Found Negative Constitutional: Negative for: Fever Cardiovascular: Positive for: Chest Pain Respiratory: Negative for: Cough, Shortness of Breath Gastrointestinal: Negative for: Nausea, Vomiting, Abdominal Pain, Diarrhea Musculoskeletal: Negative for: Leg Pain (or swelling) Physical Exam - Reviewed Nursing Documentation Reviewed: Yes Vital Signs Reviewed: Yes - Physical Exam Comments: GENERAL APPEARANCE: Patient is awake, alert, oriented x 3, in no acute distress. SKIN: Warm, dry; (-) cyanosis. EYES: (-) conjunctival pallor. ENMT: Mucous membranes moist. Airway patent, (-) stridor. NECK: Supple, FROM (-) tenderness, (-) stiffness, (-) lymphadenopathy, (-) JVD. CHEST AND RESPIRATORY: (-) rash, (+) reproducible anterior chest wall tenderness. Lungs: (-) rales, (-) rhonchi, (-) wheezes, (-) rub; breath sounds equal bilaterally. HEART AND CARDIOVASCULAR: (-) irregularity ABDOMEN AND GI: Soft; (-) distention, (-) tenderness, (-) palpable pulsatile mass. EXTREMITIES: (-) deformity; (-) edema, (-) calf tenderness. (+) distal pulses. NEURO AND PSYCH: Mental status as above. Cranial nerves grossly intact; strength symmetric. Gait: Steady. Speech: clear. - Laboratory Results Result Diagrams: 07/17/18 15:00 07/17/18 15:00 - ECG ECG Rhythm: Positive for: Sinus Rhythm (normal) Interpretation Of ECG: QTc: 432 Rate: 83 O2 Sat by Pulse Oximetry: 96 (RA) Pulse Ox Interpretation: Normal Medical Decision Making Medical Decision Making: Time: 1420 Initial Impression: Chest wall pain Initial Plan: --EKG --BMP --Troponin I --CBC --D Dimer --PTT --PT --Chest X-Ray --Toradol 30 mg IM 1515 CXR reviewed HISTORY: Chest pain COMPARISON: 08/03/2017 TECHNIQUE: Chest PA and lateral FINDINGS: LINES AND TUBES: None. LUNG AND PLEURA: The lungs are well inflated and clear. No pleural effusion or pneumothorax. HEART AND MEDIASTINUM: The heart is not enlarged. No aortic atherosclerotic calcification present. The hilar and mediastinal contours are within normal limits. SKELETAL STRUCTURES: The bony structures are within normal limits for the patient's age. VISUALIZED UPPER ABDOMEN: Normal. OTHER FINDINGS: None. IMPRESSION: No active pulmonary disease. 1555 CBC and BMP grossly unremarkable. D-Dimer <200. Troponin < 0.01. On re-evaluation, patient reports improvement of symptoms. On exam, patient remains AAOx3, in no acute distress. Lungs clear to auscultation, cardiac RRR, abdomen soft, non-tender, repeat neuro exam shows no focal findings. VSS, stable for discharge. Lab/Diagnostic results d/w the patient in great detail. Diagnosis of acute chest pain/discomfort d/w the patient. Based on history, exam and diagnostic results, plan will be for outpatient follow up with PMD/clinic. Patient instructed to follow-up with pmd / referral provided / the clinic in 1- 2 days without fail. Advised to take medication as prescribed. Return to the emergency room at any time for any new or worsening symptoms. Patient states she fully agrees with and understands discharge instructions. States that she agrees with the plan and disposition. Verbalized and repeated discharge instructions and plan. I have given the patient opportunity to ask any additional questions. Scribe Attestation: Documented by Jeanette Sawaged, acting as a scribe for TANGELA Calle. Provider Scribe Attestation: All medical record entries made by the Scribe were at my direction and personally dictated by me. I have reviewed the chart and agree that the record accurately reflects my personal performance of the history, physical exam, medical decision making, and the department course for this patient. I have also personally directed, reviewed, and agree with the discharge instructions and disposition. Disposition - Clinical Impression Clinical Impression: Chest wall pain, Tobacco use - Patient ED Disposition Is Patient to be Admitted: No Counseled Patient/Family Regarding: Studies Performed, Diagnosis, Need For Followup, Rx Given, Smoking Cessation - Disposition Referrals: Miguel Angel Bautista MD [Staff Provider] - Disposition: Routine/Home Disposition Time: 16:15 Condition: STABLE Additional Instructions: La atencin mdica de emergencia que recibi hoy se dirigi hacia los sntomas agudos de presentacin. Si le recetaron algn medicamento, llnelo y adminstrelo segn las indicaciones. Los sntomas pueden tardar varios reyes en resolverse. Regrese al Departamento de Emergencias en cualquier momento si los sntomas empeoran, no mejoran o si surgen otros problemas. Comunquese con cardona mdico dentro de 2 reyes para geoffrey nueva evaluacin y franklyn un seguimiento o llame a geovanni de los mdicos / clnicas a los que mcmahan sido referido y que figuran en el formulario de Informacin de visita al paciente que se incluye en cardona paquete de goran. Lleve todos los documentos que le entregaron al momento del goran junto con cualquier medicamento a cardona visita de seguimiento. Nuestro tratamiento no puede reemplazar la atencin mdica continua por parte de un p roveedor de atencin primaria (PCP) fuera del departamento de emergencias. Prescriptions: RX: Naproxen 500 mg PO BID PRN #20 tab PRN Reason: Pain, Moderate (4-7) Instructions: Costochondritis, Smoking: Not Just Harmful to Your Lungs and Heart, Chest Pain, Chest Pain That Is Not Caused by the Heart (DC) Forms: [employer] (Italian) Print Language: CONGOLESE - OBEDA Present On Arrival: None Results - Lab Results Lab Results: 07/17/18 07/17/18 07/17/18 15:00 15:00 15:00 WBC 7.5 RBC 4.60 Hgb 14.3 Hct 41.4 MCV 90.0 D MCH 31.1 H MCHC 34.5 RDW 13.5 Plt Count 304 MPV 9.2 Neut % (Auto) 58.9 Lymph % (Auto) 29.4 [place] % (Auto) 9.0 Eos % (Auto) 1.8 Baso % (Auto) 0.9 Neut # (Auto) 4.4 Lymph # (Auto) 2.2 [place] # (Auto) 0.7 Eos # (Auto) 0.1 Baso # (Auto) 0.1 PT 10.4 INR 0.9 APTT 34.5 D-Dimer, Quantitative < 200 Sodium 141 Potassium 4.2 Chloride 108 H Carbon Dioxide 28 Anion Gap 9 L BUN 13 Creatinine 0.5 L Est GFR ( Amer) > 60 Est GFR (Non-Af Amer) > 60 Random Glucose 92 Calcium 9.5 Troponin I < 0.0120
[2018-07-17 15:17] LABS: BLOOD UREA NITROGEN 13 mg/dl (7-17); CALCIUM 9.5 mg/dL (8.4-10.2); GFR NON-AFRICAN AMERICAN > 60; INR 0.9; PROTHROMBIN TIME 10.4 Seconds (9.8-13.1)
[2018-07-17 15:19] LABS: PARTIAL THROMBOPLASTIN TIME 34.5 Seconds (25.6-37.1)
[2018-07-17 15:53] LABS: D DIMER < 200 ng/mlDDU (0-230)
[2018-07-17 17:03] VITALS: BP 129/87; RESP 18
--- NOTE | 2018-07-17 21:03 | CARD ---
APPROVED REPORT Date of service: 07/17/2018 EKG Measurement Heart [id number] <Conclusion> Normal sinus rhythm Normal ECG
[2018-07-20 12:39] VITALS: PULSE 83; O2SAT 96
== END 2018-07-17 16:58 | disposition home or self-care (01) ==
LOC: H.ER 13:04
DX: R07.89 Other chest pain (principal); F17.210 Nicotine dependence, cigarettes, uncomplicated; E78.00 Pure hypercholesterolemia, unspecified
CPT/HCPCS: 71046; 80048; 84484; 85025; 85378; 85610; 85730; 93005; 96372; 99284; J1885